=== PATIENT | male | born 1955 | race Caucasian/White ===

== ENCOUNTER → 2016-12-19 08:45 | Outpatient (CLI) | payer MEDICARE ==
--- NOTE | ~2016-12-19 | EMG ---
PATIENT:ERICA TONEY DATE OF SERVICE: 12/19/16 MEDICAL RECORD: [id number] DATE OF : 59 LOCATION: [facility] ADMISSION DATE: REFERRING PHYSICIAN: VALENTINA LOCK MD INTERPRETING PHYSICIAN: ADAM WILKERSON MD DATE OF SERVICE: 12/19/2016 Referred as an outpatient by Dr. Lock. ELECTROMYOGRAPHIC DATA: Electromyographic examination is limited to both lower extremities. In the right lower extremity, right peroneal motor stimulation elicits a compound motor action potential with a distal latency of 4.2 milliseconds, peak amplitude of only 1 millivolt and calculated conduction velocity of 36 meters per second. Right tibial motor stimulation elicits a compound motor action potential with a distal latency of 3.7 milliseconds, peak amplitude of 5 millivolts, and calculated conduction velocity of 33 meters per second. Antidromic right sural sensory stimulation elicits no reliable response. The right lower extremity H reflex recording at gastrocsoleus has a latency of 41 milliseconds. In the left lower extremity, left peroneal motor stimulation elicits no reliable response. Left tibial motor stimulation elicits a compound motor action potential with a distal latency of 3.7 milliseconds, peak amplitude of 3 millivolts, and calculated conduction velocity of 37 meters per second. Antidromic left sural sensory stimulation elicits no reliable response. The left lower extremity H reflex recording at gastrocsoleus has a latency of 42 milliseconds. Needle electrode examination is limited to both lower extremities as well. Muscles interrogated include the abductor hallucis, extensor digitorum brevis, abductor digiti quinti, tibialis anterior, medial gastrocnemius, vastus lateralis, semitendinosis and gluteus ligia. There is markedly reduced insertional activity in the intrinsic foot muscles bilaterally with the exception of a few small fibrillation potentials observed in the left abductor hallucis. Positive sharp waves and fibrillation potentials are also observed in the right tibialis anterior and to a lesser extent the left gastrocsoleus complex. Motor unit potential morphology and the pattern of motor unit potential firing and recruitment demonstrates absence of near field motor units in the intrinsic foot muscles bilaterally with the exception of the abductor hallucis bilaterally where motor units fire at an increased rate with decreased numbers consistent with diminished recruitment. These motor units are of increased amplitude and duration. More proximally, there is also a diminishment in the number of motor units firing at an increased rate consistent with decreased recruitment at the right tibialis anterior and to a lesser extent the left tibialis anterior. More proximally motor unit potential morphology and the pattern of motor unit potential firing and recruitment is normal. INTERPRETATION: Electromyographic examination of both lower extremities is indicative of a diffuse disorder of the lower motor neuron in both lower extremities, moderately severe in degree electrically, consistent with the diagnosis of a sensory motor peripheral polyneuropathy. There is no electrical evidence of a superimposed lumbosacral radiculopathy or other lesion of the ELECTROMYGRAM/NERVE CONDUCTION [id number] HAGENESS,ERICA lower motor neuron in the lower extremities. 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 TRANSINT:[id number] Voice Confirmation ID: [id number] DOCUMENT ID: [id number] ADAM WILKERSON MD CC: [id number] DICTATION DATE: 12/20/1634 SERVICE CLEANER: 12/20/16 2345 DEP CLI 12/19/16 [id number] [place] [address]
== END | disposition home or self-care (01) ==
LOC: D.CN 08:45
DX: G90.09 Other idiopathic peripheral autonomic neuropathy (principal)

== ENCOUNTER → 2017-01-05 09:07 | Outpatient (CLI) | payer MEDICARE ==
[2017-01-05 10:55] LABS: T4 THYROXINE 7.2 ug/dL (4.7-13.3); THYROID STIMULATING HORMONE 0.69 uIU/mL (0.36-3.74)
[2017-01-05 11:27] LABS: ERYTHROCYTE SEDIMENTATION RATE 6 mm/hr (0-20)
[2017-01-06 06:11] LABS: RAPID PLASMA REAGIN Non Reactive (Non Reactive)
[2017-01-06 07:18] LABS: FOLATE (FOLIC ACID) - SERUM >20.0 ng/mL (>3.0)
[2017-01-07 12:11] LABS: ANA REFLEX - DIRECT Negative (Negative)
== END | disposition home or self-care (01) ==
LOC: D.LAB 09:07 → D.MRI 10:30
PROVIDERS: Psychiatry & Neurology Neurology
DX: G11.3 Cerebellar ataxia with defective DNA repair (principal); E87.1 Hypo-osmolality and hyponatremia; F10.21 Alcohol dependence, in remission